=== PATIENT | female | born 2000 | race Caucasian/White ===

== ENCOUNTER 2021-06-06 16:45 | Emergency (ER) | payer OTHER, SELFPAY ==
[2021-06-06 17:27] VITALS: BP 118/71; PULSE 78; RESP 16; TEMP 36.8; O2SAT 100
--- NOTE | 2021-06-06 18:39 | ED.SKABFB ---
HPI - Skin/Abscess/Foreign Bdy General Chief complaint: Skin/Abscess/Foreign Body Stated complaint: lump on lt ca Time Seen by Provider: 06/06/21 18:39 Source: patient and RN notes reviewed Mode of arrival: ambulatory Limitations: no limitations History of Present Illness HPI narrative: 20-year-old female presents concern for a red area on the front of her right lower leg. She reports she noticed the area 1 week ago and has since gotten larger and redder. Reports soreness. She reports she is currently on Augmentin for strep throat, she failed a course of azithromycin for strep. She also recently took Tamiflu for influenza. She denies any other intervention for the area. MD complaint: insect bite/sting Related Data Home Medications Medication Instructions Recorded Confirmed azelastine 0.05 % eye drops 1 drop EACH EYE BID 12/27/19 06/06/21 cetirizine 10 mg tablet 10 mg PO DAILY 12/27/19 06/06/21 montelukast 10 mg tablet 10 mg PO DAILY 12/27/19 06/06/21 tazarotene 0.1 % topical gel 1 applic TOPICAL DAILY 12/27/19 06/06/21 tretinoin microspheres 0.1 % 1 applic TOPICAL QPM 12/27/19 06/06/21 topical gel Allergies Allergy/AdvReac Type Severity Reaction Status Date / Time progesterone Allergy Severe Anaphylactic Verified 06/06/21 17:50 Shock cefdinir Allergy Mild rash Verified 06/06/21 17:50 Cephalosporins Allergy Mild Rash Verified 06/06/21 17:50 Sulfa (Sulfonamide Allergy Mild hives Verified 06/06/21 17:50 Antibiotics) adhesive tape Allergy Unknown HIVES Verified 06/06/21 17:50 Review of Systems Review of Systems: CONSTITUTIONAL: Denies malaise, chills, sweats, or fever. EYES: Denies redness, or discharge. ENT: Denies rhinorrhea, congestion, swollen lips, swollen tongue CARDIOVASCULAR: Denies chest pain, palpitations, or edema. RESPIRATORY: Denies cough or dyspnea. GASTROINTESTINAL: Denies abdominal pain, nausea, vomiting SKIN: Reports tender swollen red bump on the right lower leg MUSCULOSKELETAL: Denies joint painor myalgia. NEUROLOGIC: Denies headache. 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 There is no relevant family history pertinent to the presenting complaint Exam Narrative: GENERAL: Well-appearing, well-nourished, and in no acute distress. HEAD: Normocephalic, atraumatic. EYES: PERRLA, conjunctivae clear ENT: Mucous membranes moist. NECK: Supple. No lymphadenopathy CHEST: Clear to auscultation. No respiratory distress. HEART: Regular rate and rhythm. SKIN: Warm, dry. 3 cm raised erythematous area without fluctuation with with approximately 1 cm of surrounding erythema without induration or fluctuation. No scab noted. No other bumps or rash noted. NEURO: Alert and oriented x3. PSYCH: Normal mood and affect Course Course Emergency Course: Discussed with patient option of finishing Augmentin and treating the area with warm compresses and elevation or starting a second antibiotic. Through shared decision making patient has decided to wait on starting a second antibiotic to see if symptoms improve. Patient is aware of diagnosis, understands and agrees to treatment plan. Anticipatory guidance g
== END 2021-06-06 18:55 | disposition home or self-care (01) ==
PROVIDERS: Emergency Provider Nurse Practitioner; PCP Family Medicine
DX: L08.9 Local infection of the skin and subcutaneous tissue, unspecified (principal)
CPT/HCPCS: 99211; G0463

== ENCOUNTER 2022-09-01 14:22 | Outpatient (CLI) | payer OTHER, SELFPAY ==
--- NOTE | ~2022-09-01 | CT_ITS ---
EXAMINATION: CT abdomen pelvis w con DATE: 09/01/2022 15:49 INDICATION: Nausea. Left lower quadrant abdominal pain. TECHNIQUE: Computed tomography (CT) of the abdomen and pelvis was performed with 100 mL Omnipaque 350 intravenous contrast. Automated exposure control and iterative reconstruction technique were employe d. The dose-length product was 277.40 mGy-cm. COMPARISON: None. FINDINGS: The visualized portions of the lung bases are clear without pneumonia or pleural effusion. The heart size is normal. No pericardial effusion. The liver, gallbladder, spleen, pancreas, adrenal glands, and kidneys are normal. There is a ring-shaped device in the vagina. There are no dilated loo ps of bowel. The appendix is normal. There are no pathologically enlarged lymph nodes. There is no fr ee intraperitoneal fluid. There is levocurvature of lumbar spine. IMPRESSION: 1. No etiology for the patient's symptoms. Reviewed, dictated and finalized at location A.
[2022-09-01 15:45] LABS: Basophils Percent Auto 0.2 % (0.2-1.2); Eosinophils Percent Auto 0.4 % (0-4.4); Hematocrit 44.9 % (37.0-47.0); Hemoglobin 14.9 g/dL (12.0-15.0); Immature Granulocyte Absolute 0.01 K/mm3 (0.00-0.031); Immature Granulocyte Percent A 0.2 % (0-0.5); Lymphocytes Absolute Auto 1.14 K/mm3 (0.9-3.2); Lymphocytes Percent Auto 23.9 % (18.3-44.2); Mean Corpuscular HGB Conc 33.2 g/dl (32-36); Mean Corpuscular Hemoglobin 28.5 pg (26-34); Mean Platelet Volume 12.2 fl (7.4-10.4); Monocytes Absolute Auto 0.3 K/mm3 (0.1-0.6); Monocytes Percent Auto 6.3 % (2.6-8.5); Neutrophils Absolute Auto 3.3 K/mm3 (1.3-6.7); Platelet Count Result 178 k/mm3 (150-375); Red Blood Count 5.22 M/mm3 (4.2-5.4); Red Cell Distribution Width 12.3 % (11.5-14.5); White Blood Count 4.8 K/mm3 (4.5-10.0)
[2022-09-01 15:56] LABS: Alanine Aminotransferase 32 U/L (6-35); Albumin Level 4.5 g/dL (3.5-5.1); Alkaline Phosphatase 72 U/L (38-126); Anion Gap 9 mmol/L (8-16); Aspartate Amino Transferase 36 U/L (14-36); Bilirubin,Total 0.6 mg/dL (0.2-1.3); Blood Urea Nitrogen 14 mg/dL (7-17); Calcium 9.1 mg/dL (8.4-10.2); Carbon Dioxide 27 mmol/L (22-30); Chloride 101 mmol/L (98-107); Estimated Glomerular Filt Rate > 60; Glucose 76 mg/dL (65-110); Potassium 3.5 mmol/L (3.4-5.0); Sodium 137 mmol/L (137-145)
== END 2022-09-01 14:23 | disposition home or self-care (01) ==
PROVIDERS: PCP Family Medicine; Visit Provider Physician Assistant
DX: R11.0 Nausea (principal); R10.9 Unspecified abdominal pain; Z96.651 Presence of right artificial knee joint
CPT/HCPCS: 36415; 74177; 80053; 85025; Q9967